=== PATIENT | male | born 1995 | race African-American/Black ===

== ENCOUNTER 2017-03-09 17:45 | Emergency (ER) | payer SELFPAY ==
[~2017-03-09] VITALS: Ht 177.8 cm; Wt 68.0 kg
[~2017-03-09 17:45] MED LIST: KETO10 PO
[2017-03-09 17:46] VITALS: BP 125/70; TEMP 98.2; O2SAT 99
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
[2017-03-09] MEDS ORDERED: LIDOCAINE HCL 1% 50 ML VIAL INFIL ONE (18:00)
== END 2017-03-09 19:24 | disposition home or self-care (01) ==
LOC: NEPK 17:45
DX: S61.412A Laceration without foreign body of left hand, initial encounter (principal); W45.8XXA Other foreign body or object entering through skin, initial encounter
CPT/HCPCS: 12001

== ENCOUNTER 2017-03-20 05:11 | Emergency (ER) | payer SELFPAY ==
[~2017-03-20] VITALS: Ht 180.3 cm; Wt 70.0 kg
[2017-03-20 05:15] VITALS: BP 142/72; PULSE 54; RESP 14; TEMP 98.6; O2SAT 98
--- NOTE | 2017-03-20 05:34 | PD ---
HPI Chief Complaint: Wound/Suture/Staple Re-Check Time Seen by Provider: 05:31 Travel History International Travel<30 days: No Contact w/Intl Traveler<30days: No Traveled to known affect area: No History of Present Illness HPI 21-year-old black male presents to emergency Department for a wound check of his left hand. He was concerned that he may have a secondary wound infection because he noticed a area of redness on the edge of the wound. He denies any fever chills. No discharge. Significant tenderness. No weakness. No drainage. PFSH Past Medical History Medical History: Denies Significant Hx Diminished Hearing: No Immunizations Current: Yes Tetanus Vaccination: < 5 Years Influenza Vaccination: No Past Surgical History Appendectomy: Yes Social History Alcohol Use: No Tobacco Use: No Substance Use: Yes (marijuana) Allergies-Medications (Allergen,Severity, Reaction): Coded Allergies: No Known Allergies (Verified , 03/20/17) Reported Meds & Prescriptions Reported Meds & Active Scripts Active No Active Prescriptions or Reported Medications Review of Systems Except as stated in HPI: all other systems reviewed are Neg Physical Exam Narrative GENERAL: This is a well-nourished, well-developed patient, in no apparent distress. SKIN: No rashes, ecchymoses or lesions. Warm and dry. HEAD: Atraumatic. Normocephalic. EYES: PERRL, EOMI, no discharge or injection. No scleral icterus. EARS: Clear NOSE: Nasal turbinates appear normal. THROAT: Mucosa pink and moist. Airway patent. NECK: Trachea midline. supple, moves head freely. LUNGS: Clear to auscultation. CV: Regular in rhythm. ABDOMEN: Soft nontender. EXT: No clubbing cyanosis or edema. Patient has a healing laceration to the volar surface of the left hand over the fifth metacarpal. No signs of infection. No erythema, warmth or discharge. Data Data Last Documented VS Vital Signs Date Time Temp Pulse Resp B/P Pulse Ox O2 Delivery O2 Flow Rate FiO2 03/20/17 05:25 16 03/20/17 05:15 98.6 54 142/72 98 Room Air MDM Medical Decision Making Medical Screen Exam Complete: Yes Emergency Medical Condition: Yes Medical Record Reviewed: Yes Differential Diagnosis MDM: High Differential diagnoses: Fracture, sprain, strain, dislocation, contusion, neurovascular injury, wound infection Narrative Course Patient's laceration is healing without signs of infection. Diagnosis Primary Impression: laceration recheck Additional Impression: healing laceration Patient Instructions: General Instructions Additional Instructions: Rest. Elevation. Daily wound care with soap, water, Neosporin. Tylenol or Advil for pain. Sutures out in a total of 12 days. Return to the ER if any problems. Med/Other Pt SpecificInfo: Wound Care Scripts No Active Prescriptions or Reported Meds Disposition: 01 DISCHARGE HOME Condition: Stable Ced Sofia March 20, 2017 05:34
== END 2017-03-20 05:47 | disposition home or self-care (01) ==
LOC: NEPD 05:11
DX: S61.412D Laceration without foreign body of left hand, subsequent encounter (principal); X58.XXXD Exposure to other specified factors, subsequent encounter
CPT/HCPCS: 99281